=== PATIENT | male | born 1955 | race American Indian/Alaskan Native ===

== ENCOUNTER 2016-12-19 08:15 | Outpatient (CLI) | payer BC ==
--- NOTE | 2016-12-19 13:16 | PET Report ---
PET/CT:12/19/16 08:15:00 CLINICAL: Non-Hodgkin's lymphoma RADIOPHARMACEUTICAL: 15.2mCi F18-FDG. COMPARISON: CT chest, abdomen and pelvis 06/26/16 TECHNIQUE- Following intravenous injection of F-18 FDG and an approximately 60 minute uptake period, CT and PET images from the mid skull to the upper thighs were acquired with the patient in the fasted state. No contrast was administered. The CT protocol used for this PET CT study is designed for attenuation correction and anatomic localization of PET abnormalities. This loading rack supervisor CT is not desired to produce and cannot replace, tshmy-fu-tir-art diagnostic CT scans with specific imaging protocols for different body parts and indications. Plasma glucose the time of this test: 106g/dl. The standardized uptake values (SUV) are normalized to patient body weight and indicate the highest activity concentration (SUV max) in a given disease site. FINDINGS: Brain--Physiologic FDG uptake in the visualized regions of the brain. Neck--Physiologic FDG uptake . Stable shotty lymph nodes. Chest--Physiologic FDG uptake in mediastinal blood pool and myocardium. Lungs--No abnormal uptake. No pulmonary nodule or mass. Pleura/pericardium--No abnormal uptake. Thoracic nodes--No abnormal uptake. Hepatobiliary--No abnormal uptake. Liver background SUV mean, as a reference for comparing FDG studies, is 4.3 . No liver mass. Spleen--No abnormal uptake. The previously described splenic lesion is no longer identified. The spleen is slightly smaller and measures 13.2 cm in maximum dimension. Pancreas--No abnormal uptake. Adrenal Glands--No abnormal uptake. Kidneys/Ureters/Bladder--No abnormal uptake. Abdominopelvic Nodes--No abnormal uptake. No lymphadenopathy. Bowel/Peritoneum/Mesentery--No abnormal uptake. Pelvic organs--No abnormal uptake. Bones/Soft Tissues--No abnormal uptake. Stable chronic L2 wedge compression fracture. Status post posterior lumbar fusion from L4-S1. IMPRESSION- Negative study with no evidence of tumor.The previously described splenic mass is no longer identified. However, if it were a benign hemangioma, it may not be visible on this exam because of the lack of IV contrast. Mild splenomegaly. No lymphadenopathy.
== END 2016-12-19 08:16 | disposition home or self-care (01) ==
LOC: PET 08:15
PROVIDERS: ATTEND Internal Medicine Hematology & Oncology
DX: C84.48 Peripheral T-cell lymphoma, not elsewhere classified, lymph nodes of multiple sites (principal); M43.27 Fusion of spine, lumbosacral region; M48.56XD Collapsed vertebra, not elsewhere classified, lumbar region, subsequent encounter for fracture with routine healing
CPT/HCPCS: 78815; A9552; 82962